=== PATIENT | female | born 1990 | race Caucasian/White ===

== ENCOUNTER 2018-09-01 08:08 | Outpatient (CLI) | payer OTHER ==
[2018-09-01] MEDS ORDERED: GADOBUTROL 10 MMOL/10 ML VIAL ONE (09:35)
[2018-09-01] MEDS ORDERED: GADOBUTROL 10 MMOL/10 ML VIAL IV ONE (10:54)
--- NOTE | 2018-09-01 10:56 | MRI Report ---
Reason: CEREBRAL INFARCTION,UNSPECIFIED Procedure Date: 09/01/2018 Accession Number: [id number] / [id number] Procedure: MRI - Angio Brain W/O (MRA) CPT Code: FULL RESULT: EXAM MRA BRAIN EXAM DATE: 09/01/2018 09:50 AM. CLINICAL HISTORY: The exam requisition states cerebral infarction. Also history of headaches and dizziness. COMPARISON: None. TECHNIQUE: Multiplanar, multisequence MRA sequences of the brain were performed. Other: None. Post-processing: Multiplanar 3D MIP reconstructions. IV Contrast: None. FINDINGS: Patent distal internal carotid arteries. No evidence for intracranial vertebrobasilar insufficiency. No evidence for proximal intracranial large artery flow-limiting stenosis, occlusion or filling defect. Posterior communicating arteries may be present but appear very small and indistinct on the axial MRA source images. No evidence for wiyot of Guzman saccular aneurysm. Detailed arterial evaluation is mildly motion limited. IMPRESSION: 1. Normal brain MRA. No stenoses or aneurysms. [facility]
--- NOTE | 2018-09-01 11:15 | MRI Report ---
Reason: CEREBRAL INFARCTION,UNSPECIFIED Procedure Date: 09/01/2018 Accession Number: [id number] / [id number] Procedure: MRI - Angio Neck W/WO (MRA) CPT Code: FULL RESULT: EXAM: MR ANGIOGRAM NECK EXAM DATE: 09/01/2018 10:15 AM. CLINICAL HISTORY: Stated history of cerebral infarction on exam requisition. Also reported history of headache and dizziness. COMPARISON: None. TECHNIQUE: Multiplanar, multisequence MRA sequences of the neck were performed. Other: None. Post-processing: Multiplanar 3D MIP reconstructions. IV Contrast: Without and with 8 mL Gadavist. Evaluation of arterial stenosis is based on a NASCET method of measurement. FINDINGS: Unremarkable appearance of the top of the aortic arch. The great vessel origins are patent. No proximal subclavian artery stenosis. Normal MRA appearance of the cervical vertebral arteries. No evidence for intracranial vertebrobasilar insufficiency. No evidence for an acute abnormality or focal lesion of the vertebral arteries. Patent normal-appearing symmetric cervical carotid arteries, no acute abnormality or focal stenosis. Unremarkable contours of both the cervical carotid bifurcations. The cervical vertebral and carotid artery flow voids are maintained, no evidence for dissection of these vessels. IMPRESSION: Normal neck MRA. No hemodynamically significant stenoses. [facility]
== END 2018-09-01 08:09 | disposition home or self-care (01) ==
LOC: DI 08:08
PROVIDERS: ATTEND Family Medicine
DX: I63.9 Cerebral infarction, unspecified (principal)
CPT/HCPCS: 70544; 70549; 93306; A9585